=== PATIENT | female | born 2000 | race American Indian/Alaskan Native ===

== ENCOUNTER 2021-07-28 02:02 | Emergency (ER) | payer SELFPAY ==
[2021-07-28 03:50] LABS: BUN/Creatinine Ratio 13; Blood Urea Nitrogen 10 mg/dL (9-20); Calcium 8.5 mg/dL (8.4-10.2); Hemolysis Index 10
[2021-07-28 04:45] LABS: Basophils % (Auto) 0.2 % (0.0-1.8); Eosinophils # (Auto) 0.1 K/mm3 (0.0-0.4); Eosinophils % (Auto) 2.9 % (0.0-4.3); Hematocrit 35.1 % (30.3-42.9); Hemoglobin 12.4 gm/dl (10.1-14.3); Lymphocytes # (Auto) 1.1 K/mm3 (1.2-5.4); Lymphocytes % (Auto) 32.8 % (13.4-35.0); Mean Corpuscular HGB Conc 35 % (30-34); Mean Corpuscular Volume 94 fl (79-97); Monocytes # (Auto) 0.4 K/mm3 (0.0-0.8); Monocytes % (Auto) 11.1 % (0.0-7.3); Platelet Count 162 K/mm3 (140-440); Red Blood Count 3.73 M/mm3 (3.65-5.03)
--- NOTE | 2021-07-28 05:14 | Emergency Department Report ---
ED Syncope HPI - General Chief Complaint: Seizure Stated Complaint: SEIZURE, SYNCOPE Time Seen by Provider: 07/28/21 02:47 - History of Present Illness Initial Comments: Chief complaint: Syncope HPI: 21-year-old female who has been feeling weak for the last 2 days. She was told that clinically she was dehydrated. She had a recent negative flu Covid test. She was bedbound due to fatigue on yesterday. She flew from [facility] to [place]. On get off the plane she had feeling of lightheadedness. She passed out. She denies leg pain, she denies chest pain or shortness of breath. She is not on oral contraceptives. She is currently menstruating Timing/Prior Episodes: single episode today Precipitating Factors: Positive: lightheadedness Context: other (Standing walking) Loss of Consciousness: brief (seconds) Current Symptoms: back to normal - Related Data Allergies/Adverse Reactions: Allergies No Known Allergies Allergy (Verified 07/28/21 02:06) ED Review of Systems ROS: Stated complaint: SEIZURE, SYNCOPE Other details as noted in HPI Comment: All other systems reviewed and negative Constitutional: malaise. denies: chills, fever Respiratory: denies: cough, shortness of breath Cardiovascular: denies: chest pain Gastrointestinal: denies: abdominal pain, nausea, vomiting ED Past Medical Hx - Past Medical History Previous Medical History?: No - Surgical History Past Surgical History?: No - Social History Smoking Status: Never Smoker Substance Use Type: None ED Physical Exam - General Limitations: Altered Mental Status ED Course Vital Signs 07/28/21 07/28/21 07/28/21 02:07 03:25 03:30 Temperature 98.3 F Pulse Rate 86 68 Respiratory 17 18 Rate Blood Pressure 133/92 118/80 O2 Sat by Pulse 100 100 100 Oximetry 07/28/21 07/28/21 03:46 03:50 Temperature Pulse Rate 67 Respiratory 17 Rate Blood Pressure 112/74 O2 Sat by Pulse 100 96 Oximetry ED Medical Decision Making - Lab Data Result diagrams: 07/28/21 03:19 07/28/21 03:19 Laboratory Results - last 24 hr 07/28/21 07/28/21 03:19 03:19 WBC 3.5 L RBC 3.73 Hgb 12.4 Hct 35.1 MCV 94 MCH 33 H MCHC 35 H RDW 13.0 L Plt Count 162 Lymph % (Auto) 32.8 [place] % (Auto) 11.1 H Eos % (Auto) 2.9 Baso % (Auto) 0.2 Lymph # (Auto) 1.1 L [place] # (Auto) 0.4 Eos # (Auto) 0.1 Baso # (Auto) 0.0 Seg Neutrophils % 53.0 Seg Neutrophils # 1.8 Sodium 142 Potassium 3.8 Chloride 109.8 H Carbon Dioxide 21 L Anion Gap 15 BUN 10 Creatinine 0.8 Estimated GFR > 60 BUN/Creatinine Ratio 13 Glucose 98 Calcium 8.5 - Medical Decision Making Vasovagal syncope with preceding days of fatigue weakness heavy vaginal bleeding reported. PERC negative for PE. Discharged home. Recommended rest and hydration. Critical care attestation.: If time is entered above; I have spent that time in minutes in the direct care of this critically ill patient, excluding procedure time. ED Disposition Clinical Impression: Vasovagal syncope Disposition: 01 HOME / SELF CARE / HOMELESS Is pt being admited?: No Does the pt Need Aspirin: No Condition: Stable Instructions: Syncope (ED), Syncope, [id number] Referrals: PRIMARY CARE, [Primary Care Provider] - 3-5 Days
[2021-07-28 06:51] VITALS: BP 98/61
== END 2021-07-28 05:55 | disposition home or self-care (01) ==
LOC: EDSEX → ED 02:02
DX: R55 Syncope and collapse (principal)
CPT/HCPCS: 36415; 80048; 85025; 99283